=== PATIENT | male | born 1980 | race Caucasian/White ===

== ENCOUNTER 2020-08-27 19:02 | Emergency (ER) | payer MEDICAID ==
[~2020-08-27] VITALS: Ht 180.3 cm; Wt 111.1 kg
--- NOTE | 2020-08-27 19:20 | NUR ---
PT BIBSELF C/O NECK PAIN SINCE THURSDAY AFTER SLIP AND FALL. DENIES KO. PT HAS PERSONAL SOFT NECK COLLAR. PT ABLE TO SIT UP FROM WHEEL CHAIR AND WALK TO [facility]. PT PLACED ON SUPINE POSITION. PT AOX4 RR EVEN AND UNLABORED. NO SOB NOTED. NO NVD AT THIS TIME. PT GOWNED AND PLACED ON MONITOR WAITING FOR MD ENNIS.
[2020-08-27] MEDS ORDERED: ONDANSETRON 4 MG TAB.RAPDIS ONE (20:00)
[2020-08-27] MEDS ORDERED: ONDANSETRON 4 MG TAB.RAPDIS SL ONE (20:00)
--- NOTE | 2020-08-27 20:23 | NUR ---
DR JIM ANDERSON PER MANUEL SAMS.
--- NOTE | 2020-08-27 20:29 | NUR ---
SOFT COLLAR REMOVED AND CHANGED INTO A HARD COLLAR.
[2020-08-27] MEDS ORDERED: IV NS 0.9% 1,000 ML BAG IV ONE (20:30)
[2020-08-27 20:47] LABS: BASOPHILS # (AUTO) 0.1 /CMM (0.0-0.2); BASOPHILS % (AUTO) 0.8 % (0.0-2.0); HEMATOCRIT 47 % (39-51); LYMPHOCYTES # (AUTO) 2.9 /CMM (0.8-4.8); LYMPHOCYTES % (AUTO) 27.3 % (20.0-44.0); MEAN CORPUSCULAR HGB CONC 34 g/dl (31.0-36.0); MEAN CORPUSCULAR VOLUME 90 fL (80-96); MONOCYTES # (AUTO) 0.7 /CMM (0.1-1.30); MONOCYTES % (AUTO) 6.8 % (2.0-12.0); NEUTROPHILS # (AUTO) 6.6 /CMM (1.8-8.9); NEUTROPHILS % (AUTO) 62.1 % (43.0-81.0); PLATELET COUNT (AUTO) 273 /CMM (150-450); RED BLOOD CELL COUNT(AUTO) 5.26 MIL/uL (4.5-6.0); WHITE BLOOD COUNT (AUTO) 10.6 K/uL (4.3-11.0)
--- NOTE | 2020-08-27 20:52 | NUR ---
FACESHEET AND CLINICALS FAXED TO [facility].
[2020-08-27 21:18] LABS: CALCIUM, SERUM 9.3 mg/dL (8.5-10.1); POTASSIUM 3.9 mmol/L (3.5-5.1)
--- NOTE | 2020-08-27 21:21 | NUR ---
PT ACCEPTED TO [place] [id number], [address] DR RUBIO. # FOR [phone].
--- NOTE | 2020-08-27 21:23 | NUR ---
[facility] CALLED FOR TRANSPORT. ETA 45 MINUTES.
[2020-08-27 21:26] LABS: ALBUMIN 4.1 g/dL (3.4-5.0); BILIRUBIN,DIRECT 0.2 mg/dL (0.0-0.2); BILIRUBIN,TOTAL 0.8 mg/dL (0.2-1.0); TOTAL PROTEIN, SERUM 7.8 g/dL (6.4-8.2)
--- NOTE | 2020-08-27 22:05 | NUR ---
REPORT GIVEN TO NURSE MARI AT [facility] PATIENT ASSIGNED NEW ROOM [id number].
--- NOTE | 2020-08-27 22:16 | NUR ---
[facility] AT BED SIDE TO [employer]PERATIONS CONSULTANT THE PT. REPORT GIVEN
[2020-08-27] MEDS ORDERED: MORPHINE SULFATE INJ 4 MG/ML DISP.SYRIN ONE (22:24)
[2020-08-27] MEDS ORDERED: ONDANSETRON HCL/PF 4 MG/2 ML VIAL ONE (22:26)
[2020-08-27] MEDS ORDERED: MORPHINE SULFATE INJ 4 MG/ML DISP.SYRIN IV ONE (22:30)
--- NOTE | 2020-08-27 22:31 | NUR ---
PT WAS GIVEN 4MG OF MORPHINE AND 4MG OF ZOFRAN IV PER PA'S ORDER PRIOR TRANFER
[2020-08-27 22:33] VITALS: BP 137/88
[2020-08-27] MEDS ORDERED: ONDANSETRON HCL/PF 4 MG/2 ML VIAL IV ONE (23:00)
== END 2020-08-27 22:34 | disposition short-term general hospital (02) ==
LOC: ER 19:07
DX: S12.030A Displaced posterior arch fracture of first cervical vertebra, initial encounter for closed fracture (principal); W16.012A Fall into swimming pool striking water surface causing other injury, initial encounter; Y93.11 Activity, swimming; Y92.34 Swimming pool (public) as the place of occurrence of the external cause; Y99.8 Other external cause status; E66.9 Obesity, unspecified; Z68.34 Body mass index [BMI] 34.0-34.9, adult; Z20.822 Contact with and (suspected) exposure to COVID-19; F17.200 Nicotine dependence, unspecified, uncomplicated; M54.2 Cervicalgia; S09.90XA Unspecified injury of head, initial encounter; F17.290 Nicotine dependence, other tobacco product, uncomplicated
CPT/HCPCS: 36415; 70450; 71045; 72125; 80048; 80076; 85025; 85730; 87426; 93005; 96361; 96374; 96375; 99285; 99406; C9803; J2270; J2405; J7030; Q0162